=== PATIENT | female | born 1970 | race Caucasian/White ===

== ENCOUNTER → 2022-10-29 | Outpatient (CLI) | payer OTHER ==
[~2022-10-29] MED LIST: HYDACE5 PO
[2022-10-31 17:09] LABS: HPV 16 Negative (Negative); HPV 18 Negative (Negative); HPV OTHER HR TYPES Negative (Negative)
== END | disposition home or self-care (01) ==
LOC: LAB SHORT 13:30 → LAB 13:30
PROVIDERS: Family Medicine
DX: Z12.4 Encounter for screening for malignant neoplasm of cervix (principal)
CPT/HCPCS: 87624; G0145

== ENCOUNTER → 2023-03-27 | Outpatient (CLI) | payer OTHER | END | disposition home or self-care (01) | LOC: LAB 13:11 → LAB SHORT 13:11 | DX: R30.0 Dysuria (principal) | CPT/HCPCS: 87086 ==

== ENCOUNTER 2023-04-25 18:05 | Emergency (ER) | payer OTHER ==
[~2023-04-25] VITALS: Ht 154.9 cm; Wt 47.2 kg
[2023-04-25 18:10] VITALS: BP 108/80
== END 2023-04-25 20:40 | disposition home or self-care (01) ==
LOC: ER 18:05
DX: B02.9 Zoster without complications (principal)
CPT/HCPCS: 99283; A9270

== ENCOUNTER → 2023-11-13 | Outpatient (CLI) | payer OTHER ==
[2023-11-14 12:03] LABS: Candida Group, PCR NOT DETECTED (NOT DETECT); Candida glabrata-krusei, PCR NOT DETECTED (NOT DETECT)
[2023-11-14 12:04] LABS: Bacterial Vaginosis PCR Positive (NEGATIVE)
[2023-11-15 17:20] LABS: HEPATITIS B SURFACE ANTIBODY >1000.00 IU/L
[2023-11-16 00:51] LABS: HSV 1 SUBTYPE BY PCR Not Detected; HSV 2 SUBTYPE BY PCR Not Detected
[2023-11-16 10:51] LABS: HEPATITIS C AB CIA INTERP Negative (Negative); HEPATITIS C ANTIBODY CIA INDEX 0.12 IV
[2023-11-16 11:05] LABS: HIV 1,2 COMBO ANTIGEN/ANTIBODY Negative (Negative)
[2023-11-16 22:06] LABS: HSV 1 SUBTYPE BY PCR Not Detected; HSV 2 SUBTYPE BY PCR Not Detected; HSV SUBTYPE SOURCE Blood
== END | disposition home or self-care (01) ==
LOC: LAB SHORT 15:22 → LAB 15:22
PROVIDERS: Family Medicine
DX: N76.5 Ulceration of vagina (principal)
CPT/HCPCS: 86592; 86803; 87389; 87481; 87529; 87661; 87801

== ENCOUNTER 2024-06-19 10:50 | Day surgery (SDC) | payer OTHER ==
[~2024-06-19] VITALS: Ht 157.5 cm; Wt 49.8 kg
[2024-06-19] VITALS (16 sets, daily range): BP systolic 111–134; BP diastolic 66–99
[~2024-06-19 10:50] MED LIST changes: +LEVE500 PO
[2024-06-19] MEDS ORDERED: Lactated Ringer's 1,000 ML IV SCH (11:00)
[2024-06-19] MEDS ORDERED: CeFAZolin Sodium 2,000 MG in NS 100 ML IV SCH (11:00)
--- NOTE | 2024-06-19 12:00 | NUR ---
AMBULATORY INTO [facility]. HISTORY AND ALLERGIES REVIEWED. PT HAS HX OF LEFT LOBECTOMY. LUNGS CLEAR-SATS>90% ON RA. NPO STATUS CONFIRMED. CHLORHEXIDINE SHOWER AND WIPE X 2. PT HAS RIDE HOME PREVIOUSLY ARRANGED. PT GLASSES GIVEN TO HER FRIEND EULALIO.
[2024-06-19] MEDS ORDERED: CeFAZolin Sodium 2,000 MG VIAL ONE (12:25)
[2024-06-19] MEDS ORDERED: Bupivacaine 0.5% HCl 5 MG/ML 30MLVIAL ONE (13:22)
[2024-06-19] MEDS ORDERED: propofoL 20 ML IV ONE (13:42)
[2024-06-19] MEDS ORDERED: Rocuronium Bromide 10 MG/ML 5ML Injection IV ONE (13:42)
[2024-06-19] MEDS ORDERED: Midazolam HCl 1MG / ML 2ML Vial ONE (13:43)
[2024-06-19] MEDS ORDERED: FentaNYL Citrate 50 MCG/ML 2 ML Injection ONE ×3 (13:43→16:14)
[2024-06-19] MEDS ORDERED: Dexamethasone Sod Phos 10 MG/ML 1ML VIAL ONE (14:17)
[2024-06-19] MEDS ORDERED: Sugammadex Sodium 200 MG/2ML SDV (100 MG/ML) ONE (15:18)
[2024-06-19] MEDS ORDERED: Phenylephrine HCl 100 MCG/ML-NS 10MLSYR (1MG/10ML) ONE ×2 (15:21→15:22)
[2024-06-19] MEDS ORDERED: Glycopyrrolate 0.2 MG/ML 5ML VIAL ONE (15:24)
[2024-06-19] MEDS ORDERED: Ondansetron HCl 2 MG / ML 2ML Vial ONE (15:39)
[2024-06-19] MEDS ORDERED: OxyCODONE 5 mg/Acetamin 325 mg TABLET PO PRN (15:55)
--- NOTE | 2024-06-19 16:32 | NUR ---
INTO STEP VIA GURNEY. PT AWAKE AND ALERT-REPORTS 3/10 ABDOMINAL/INCISIONAL PAIN. INCISION/PORT SITE X 4 WITH EXUFEN C/D/I. PT TOLERATING WATER WITHOUT DIFFICULTY.
--- NOTE | 2024-06-19 17:39 | NUR ---
REVIEWED DC INSTRUCTIONS WITH PT AND HER S/O EULALIO-BOTH VERBALIZE UNDERSTANDING. PT DRESSED AND AWAITING TRANSPORTATION.
--- NOTE | 2024-06-19 17:45 | NUR ---
DISCHARGED TO HOME-OUT VIA WHEELCHAIR WITH BELONGINGS AND DISCHARGE INSTRUCTIONS ON HAND.
== END 2024-06-19 17:45 | disposition home or self-care (01) ==
LOC: ORSCMMR 10:50 → ORD 12:15 → ORSCMMR 17:45
PROVIDERS: Surgery
PROC: 3E0T3BZ Introduction of Anesthetic Agent into Peripheral Nerves and Plexi, Percutaneous Approach (ICD-10-PCS; principal; 2024-06-19 12:15)
PROC: 8E0W4CZ Robotic Assisted Procedure of Trunk Region, Percutaneous Endoscopic Approach (ICD-10-PCS; principal; 2024-06-19 12:15)
PROC: 0YU84JZ Supplement Left Femoral Region with Synthetic Substitute, Percutaneous Endoscopic Approach (ICD-10-PCS; principal; 2024-06-19 12:15)
DX: K41.30 Unilateral femoral hernia, with obstruction, without gangrene, not specified as recurrent (principal); K45.0 Other specified abdominal hernia with obstruction, without gangrene; G40.909 Epilepsy, unspecified, not intractable, without status epilepticus; Z79.899 Other long term (current) drug therapy
CPT/HCPCS: A9270; C1781; J0690; J1100; J2250; J2371; J2405; J2704; J3010; J7120